=== PATIENT | female | born 1990 | race Caucasian/White ===

== ENCOUNTER 2017-10-06 13:29 | Emergency (ER) | payer OTHER, MEDICAID ==
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
[2017-10-06] MEDS ORDERED: NS 1,000 ML IV ONE (13:38)
[2017-10-06 14:02] LABS: PLATELET COUNT 304 10^3/uL (150-400)
[2017-10-06 17:12] VITALS: BP 112/68
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
== END 2017-10-06 17:12 | disposition home or self-care (01) ==
LOC: EDUNIT#
DX: S06.0X0A Concussion without loss of consciousness, initial encounter (principal); S16.1XXA Strain of muscle, fascia and tendon at neck level, initial encounter; S00.01XA Abrasion of scalp, initial encounter; E86.9 Volume depletion, unspecified; V49.40XA Driver injured in collision with unspecified motor vehicles in traffic accident, initial encounter; Y92.410 Unspecified street and highway as the place of occurrence of the external cause; Y99.8 Other external cause status; Y93.89 Activity, other specified
CPT/HCPCS: 80305; G0480